=== PATIENT | male | born 1940 | race Caucasian/White ===

== ENCOUNTER 2016-08-03 08:31 | Outpatient (CLI) | payer MEDICARE, BC ==
[2016-08-04 15:43] LABS: Ref Lab Test Ordered WASP ALLERGEN; Reference Lab Name LABCORP
== END 2016-08-03 08:32 | disposition home or self-care (01) ==
LOC: BURLAB 08:31
PROVIDERS: ATTEND Allergy & Immunology
DX: T63.461A Toxic effect of venom of wasps, accidental (unintentional), initial encounter (principal)
CPT/HCPCS: 36415